=== PATIENT | female | born 1935 | race Two or more races ===

== ENCOUNTER 2017-06-28 00:09 | Emergency (ER) | payer OTHER ==
[~2017-06-28] VITALS: Ht 147.3 cm; Wt 38.6 kg
[~2017-06-28 00:09] MED LIST: ARICEPT10 MG PO; CEPACOL SORE T1 EAC9 MM; CYANOCOBALAMIN; FANAPT2 MG PO; HALDOL1 MG PO; JANUVIA100 MG PO; LOPRESSOR25 MG PO; NEXIUM40 MG PO; PRAVACHOL40 MG PO; ST. JOSEPH ASPI81 MG PO; SYNTHROID88 MCG PO; VENLAFAXINE HCL75 MG PO
[2017-06-28 00:49] LABS: HEMATOCRIT 33.1 % (36.0-46.0); MCHC 33.2 G/DL (30.0-36.0); MCV 96.2 FL (83-99); PLATELET COUNT 178 K/uL (156-360); RBC DIS.WIDTH-CV 13.8 % (11.8-14.6); RBC DIS.WIDTH-SD 48.8 % (39-53); RED BLOOD COUNT 3.44 M/uL (3.80-5.20); WHITE BLOOD COUNT 6.8 K/uL (4.1-10.2)
[2017-06-28 00:58] LABS: CHLORIDE 105 mEq/L (99-109); POTASSIUM 4.1 mEq/L (3.7-5.4); SODIUM 141 mEq/L (136-147)
[2017-06-28 01:00] LABS: GLUCOSE 138 mg/dL (70-99)
[2017-06-28 01:04] LABS: CREATININE 1.1 mg/dL (0.6-1.3); GFR ESTIMATE (CALCULATED) 51 mL/min/
[2017-06-28 01:05] LABS: UREA NITROGEN (BUN) 23 mg/dL (9-23)
[2017-06-28 02:15] VITALS: BP 109/57
== END 2017-06-28 02:16 | disposition home or self-care (01) ==
LOC: EME 00:09
PROVIDERS: Emergency Medicine
DX: F03.90 Unspecified dementia, unspecified severity, without behavioral disturbance, psychotic disturbance, mood disturbance, and anxiety (principal); I10 Essential (primary) hypertension; E11.9 Type 2 diabetes mellitus without complications; M81.0 Age-related osteoporosis without current pathological fracture; K22.70 Barrett's esophagus without dysplasia; Z79.82 Long term (current) use of aspirin; Z88.0 Allergy status to penicillin
CPT/HCPCS: 80048; 81003; 85027; 99281; 99284; J1630; J2250

== ENCOUNTER 2017-07-25 05:27 | Emergency (ER) | payer OTHER ==
[~2017-07-25] VITALS: Ht 147.3 cm; Wt 42.4 kg
[2017-07-25 06:00] LABS: APPEARANCE CLEAR ((CLEAR)); BILIRUBIN NEGATIVE; BLOOD NEGATIVE; COLOR YELLOW ((YELLOW)); GLUCOSE (STRIP) NEGATIVE; KETONES NEGATIVE; LEUKOCYTES NEGATIVE; NITRITE NEGATIVE; PROTEIN (STRIP) NEGATIVE; SPECIFIC GRAVITY 1.011 (1.000-1.030); UCUL ADDED? NO; UROBILINOGEN 0.2 MG/DL (0.2-1.0)
[2017-07-25 06:10] LABS: HEMATOCRIT 39.3 % (36.0-46.0); HEMOGLOBIN 12.8 G/DL (11.9-15.5); MCH 32.2 PG (29.0-34.0); MCHC 32.6 G/DL (30.0-36.0); MCV 98.7 FL (83-99); PLATELET COUNT 183 K/uL (156-360); RBC DIS.WIDTH-CV 14.7 % (11.8-14.6); RBC DIS.WIDTH-SD 53.7 % (39-53); RED BLOOD COUNT 3.98 M/uL (3.80-5.20); WHITE BLOOD COUNT 6.6 K/uL (4.1-10.2)
[2017-07-25 06:18] LABS: ALBUMIN 3.6 g/dL (3.2-4.8); CHLORIDE 107 mEq/L (99-109); POTASSIUM 4.5 mEq/L (3.7-5.4); SODIUM 143 mEq/L (136-147)
[2017-07-25 06:21] LABS: GLUCOSE 75 mg/dL (70-99); TOTAL PROTEIN 6.6 g/dL (6.4-8.3)
[2017-07-25 06:23] LABS: TOTAL BILIRUBIN 0.4 mg/dL (0.0-1.0)
[2017-07-25 06:24] LABS: ALKALINE PHOSPHATASE 110 IU/L (3-129); CREATININE 0.9 mg/dL (0.6-1.3); GFR ESTIMATE (CALCULATED) > 59 mL/min/
[2017-07-25 06:25] LABS: UREA NITROGEN (BUN) 25 mg/dL (9-23)
[2017-07-25 06:26] LABS: AST (GOT) 21 IU/L (2-34)
[2017-07-25 06:27] LABS: ALT (GPT) 10 IU/L (3-49)
[2017-07-25 06:54] LABS: TROP-I INTERPRETATION NEGATIVE; TROPONIN-I 0.02 ng/mL (0.0-0.30)
[2017-07-25 11:46] LABS: THYROTROPIN (TSH) > 100 MIU/L (0.4-5.5)
[2017-07-25 15:39] VITALS: BP 131/67
== END 2017-07-25 15:41 ==
LOC: EME → EDBD 05:27 → EME 15:41
PROVIDERS: Emergency Medicine
DX: R45.1 Restlessness and agitation (principal); F02.81 Dementia in other diseases classified elsewhere, unspecified severity, with behavioral disturbance; I48.91 Unspecified atrial fibrillation; F32.9 Major depressive disorder, single episode, unspecified; I10 Essential (primary) hypertension; E11.9 Type 2 diabetes mellitus without complications; Z79.84 Long term (current) use of oral hypoglycemic drugs; Z79.82 Long term (current) use of aspirin; Z88.0 Allergy status to penicillin
CPT/HCPCS: 71045; 80053; 81003; 84439; 84443; 84484; 85027; 90837; 93005; 99281; 99285

== ENCOUNTER 2017-08-16 10:52 | Emergency (ER) | payer OTHER ==
[~2017-08-16] VITALS: Ht 154.9 cm; Wt 47.8 kg
[2017-08-16 13:29] VITALS: BP 45/23
== END 2017-08-16 13:29 ==
LOC: EME 10:52
DX: I46.9 Cardiac arrest, cause unspecified (principal); R00.1 Bradycardia, unspecified; I10 Essential (primary) hypertension; E11.9 Type 2 diabetes mellitus without complications; M81.0 Age-related osteoporosis without current pathological fracture; F03.90 Unspecified dementia, unspecified severity, without behavioral disturbance, psychotic disturbance, mood disturbance, and anxiety; Z79.82 Long term (current) use of aspirin; Z79.84 Long term (current) use of oral hypoglycemic drugs; Z66 Do not resuscitate; Z87.19 Personal history of other diseases of the digestive system; Z85.9 Personal history of malignant neoplasm, unspecified; Z88.0 Allergy status to penicillin
CPT/HCPCS: 80048; 81003; 82150; 83605; 83690; 84484; 85025; 85610; 85730; 86850; 86900; 86901; 87040; 99281; 99285; G0480